=== PATIENT | female | born 1985 | race Two or more races ===

== ENCOUNTER 2018-03-05 15:41 | Emergency (ER) | payer OTHER ==
[~2018-03-05] VITALS: Ht 149.9 cm; Wt 77.6 kg
== END 2018-03-05 21:46 | disposition home or self-care (01) ==
LOC: ER 15:41
DX: R55 Syncope and collapse (principal)

== ENCOUNTER → 2020-03-12 | Outpatient (CLI) | payer OTHER | END | disposition home or self-care (01) | LOC: PRENATAL 09:45 | PROVIDERS: ATTEND Obstetrics & Gynecology Maternal & Fetal Medicine | DX: O35.0XX1 Maternal care for (suspected) central nervous system malformation in fetus, fetus 1 (principal); O35.3XX1 Maternal care for (suspected) damage to fetus from viral disease in mother, fetus 1; O34.211 Maternal care for low transverse scar from previous cesarean delivery; Z36.89 Encounter for other specified antenatal screening ==